=== PATIENT | male | born 1950 | race Caucasian/White ===

== ENCOUNTER 2021-05-11 06:48 | Observation (INO) ==
--- NOTE | 2021-05-04 15:05 | Anesthesiology Consultation ---
Date of Service May 04, 2021 Assessment & Plan (1) Encounter for pre-operative examination: Chart Review Chart Review: Acceptable Risk for Surgery (pending preop Covid testing results and anesthesia review of unconfirmed 04/30/21 EKG) and Patient NOT seen in Pre Admission Testing -Preop EKG from 04/30/21 still unconfirmed- no significant issues by personal visual inspection- will need reviewed by anesthesiologist DOS. Per nursing assessment 05/04/2021, patient denies any recent travel. Resides in [facility]. Wears mask per CDC guidelines. No known Covid positive contacts or Covid related symptoms. No known Covid infection in the past 90 days. Patient is vaccinated for Covid. Preop Covid testing scheduled 05/06/2021 at [facility]= will await results History Surgery Operation Date: 05/11/21 08:55 Proposed Procedures p Laparoscopic Appendectomy - Nasir Louie MD Height/Weight Height: 5 ft 7 in Weight: 85.275 kg Allergies Allergy/AdvReac Type Severity Reaction Status Date / Time No Known Allergies Allergy Verified 05/04/21 13:58 Medications Home Medications Medication Instructions Recorded Confirmed Last Taken amlodipine 5 mg PO QAM 02/02/19 05/04/21 02/26/19 atorvastatin 20 mg PO HS 02/02/19 05/04/21 02/26/19 metoprolol succinate 25 mg PO QAM 02/02/19 05/04/21 02/27/19 05:30 polyethylene glycol 3350 17 g PO DAILY PRN 02/02/19 05/04/21 02/26/19 tamsulosin 0.4 mg PO QPM 02/02/19 05/04/21 02/26/19 triamcinolone acetonide 1 applic TOPICAL DAILY PRN 02/02/19 05/04/21 02/26/19 albuterol sulfate [ProAir HFA] 2 puff INHALATION 6XD PRN 05/04/21 05/04/21 Unknown fluticasone furoate-vilanterol 1 inh INHALATION QAM 05/04/21 05/04/21 Unknown [Breo Ellipta] fluticasone propionate [Flonase] 1 spray INTRANASAL BID 05/04/21 05/04/21 Unknown gabapentin 100 mg PO TID 05/04/21 05/04/21 Unknown gabapentin 100 mg PO TID 05/04/21 05/04/21 Unknown glucosam de la cruz [id number] 1 cap PO TID 05/04/21 05/04/21 Unknown montelukast 10 mg PO QAM 05/04/21 05/04/21 Unknown omeprazole 20 mg PO QAM 05/04/21 05/04/21 Unknown Past Medical History Medical History BPH (benign prostatic hyperplasia) Emphysema lung Fatty liver GERD (gastroesophageal reflux disease) Hyperlipidemia Hypertension Osteoarthritis Past Family History Family History Other No known health problems Past Surgical History Surgical History Cyst ON CHEST REMOVED (BENIGN) History of cataract surgery History of colonoscopy History of herniorrhaphy History of tooth extraction Social History Smoking Status: Former smoker tobacco type: cigarettes Do You Dip or Chew Tobacco: No Smoking End Date: 1999 Hx Alcohol Use: No Hx Substance Use: No substance use type: does not use Testing Laboratory Results 04/08/21= WBC: 9.00 H/H: 15.9/47.8 PLATELETS: 183 03/31/21= SODIUM: 140 POTASSIUM: 4.4 CHLORIDE: 103 CO2: 26 BUN: 18 CREATININE: 1.2 GLUCOSE: 157 Electrocardiogram Date: 04/30/21 Findings: + NSR @ (80 bpm) Still unconfirmed as of 05/04/2021 Stress Test Date: 10/30/19 Type: exercise Resting EF: 55-60% Resting LV Function: normal Resting RWMA: + none Valvular Disease: no significant valvular disease Low heart rate response and or low workload achieved reduces the sensitivity of this test for the detection of coronary artery disease or ischemia. No inducible ischemia at 81% MPHR. 7 METS achieved. Stress EKG response showed no evidence of ischemia. No arrhythmias. Normal heart rate and blood pressure response to exercise. Below average exercise tolerance. At restnormal LV chamber size with mild/concentric LVH. Grade 1 diastolic dysfunction. (Reviewed by PCP 11/02/19- "Please let patient that his stress test looked good and did not show any major issue)
[~2021-05-11 06:48] MED LIST: LR 15ML/HR IV SCH; ceFAZolin 2000MG 2,000 MG/15 ML SYR IV SCH
[2021-05-11] MEDS ORDERED: fentaNYL citrate 100 MCG/2 ML VIAL IV PRN (09:06)
[2021-05-11] MEDS ORDERED: ATROPINE SULFATE 0.1 MG/ML 10ML SYR IV PRN (09:06)
[2021-05-11] MEDS ORDERED: ePHEDrine sulfate 50 MG/ML AMP IV PRN (09:06)
[2021-05-11] MEDS ORDERED: ONDANSETRON INJ 2 MG/ML 2 ML VIAL IV PRN ×2 (09:06→10:54)
[2021-05-11] MEDS ORDERED: ceFAZolin 2000MG 2,000 MG/15 ML SYR IV ONE (09:16)
--- NOTE | 2021-05-11 09:16 | History & Physical Bridge Note ---
Date of Service May 11, 2021 History & Physical Bridge Note I have examined the patient, reviewed the History & Physical and in the interval since the performance of the History & Physical I have noted the following changes of clinical significance: no changes noted
[2021-05-11] MEDS ORDERED: BACITRACIN OINT 15 GM TUBE ONE (09:28)
[2021-05-11] MEDS ORDERED: LIDOCAINE 1% LOCAL 20 ML VIAL ONE (09:28)
[2021-05-11] MEDS ORDERED: BUPIVACAINE 0.5 % 5 MG/1 ML MPF 30ML VIAL ONE (09:28)
[2021-05-11] MEDS ORDERED: MIDAZOLAM HCL 1 MG/ML 2ML VIAL ONE (09:32)
[2021-05-11] MEDS ORDERED: fentaNYL citrate 100 MCG/2 ML VIAL ONE (09:32)
[2021-05-11] MEDS ORDERED: ONDANSETRON INJ 2 MG/ML 2 ML VIAL ONE (10:29)
[2021-05-11] MEDS ORDERED: DEXAMETHASONE SOD INJ 4 MG/ML VIAL ONE (10:29)
[2021-05-11] MEDS ORDERED: LIDOCAINE 2% 2 ML VIAL/AMP(20MG/ML) INFIL ONE (10:29)
[2021-05-11] MEDS ORDERED: NEOSTIGMINE METHYLSULFATE 1 MG/ML 10ML VIAL ONE (10:29)
[2021-05-11] MEDS ORDERED: PROPOFOL IV EMULSION 10 MG/ML 20 ML VIAL IV ONE (10:29)
[2021-05-11] MEDS ORDERED: GLYCOPYRROLATE 0.2 MG/ML VIAL ONE (10:29)
--- NOTE | 2021-05-11 10:45 | Post Operative Brief Note ---
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 (whole procedure)
[2021-05-11] MEDS ORDERED: MoRPHine SULFATE 2 MG/ML CARP IV PRN (10:54)
[2021-05-11] MEDS ORDERED: SODIUM CHLORIDE 0.9% 1000ML 1,000 ML IV SCH (11:00)
--- NOTE | 2021-05-11 11:52 | Anesthesiology Progress Note ---
Date of Service May 11, 2021 Anesthesia Post Procedure Vital Signs Vital Signs: Temp Pulse Pulse Resp BP BP Pulse Ox 05/11/21 11:40 36.5 C 71 12 110/59 L 92 05/11/21 11:30 36.5 C 71 19 111/64 96 05/11/21 11:20 73 14 102/66 99 05/11/21 11:10 71 22 109/57 L 100 05/11/21 11:00 36.1 C L 70 16 116/73 99 05/11/21 07:55 36.6 C 96 H 18 149/78 H 96 Transfer of Care Handoff Completed per policy Notes Mental Status: alert / awake / arousable and participated in evaluation Patient Amnestic to Procedure: Yes Nausea / Vomiting: adequately controlled Pain: adequately controlled Airway Patency, RR, SpO2: stable & adequate BP & HR: stable & adequate Hydration State: stable & adequate Anesthetic Complications: no major complications apparent and Pt Satisfied with anesthetic care
[2021-05-11] MEDS ORDERED: TRIAMCINOLONE ACET 0.1% CR 15 GM TUBE TOP PRN (13:42)
[2021-05-11] MEDS ORDERED: POLYETHYLENE (MIRALAX) 17 GM PACK PO PRN (13:42)
[2021-05-11] MEDS ORDERED: ALBUTEROL HFA 8 GM INHALER INH PRN (13:50)
[2021-05-11] MEDS ORDERED: LACTATED RINGER'S 1,000 ML IV SCH (14:00)
[2021-05-11] MEDS ORDERED: NON-FORMULARY MEDICATION (Glucosam Su Dip-Chondroit-C-Mn 500-400-66-3 mg Capsule) PO SCH (14:00)
[2021-05-11] MEDS: GABAPENTIN 100 MG CAP PO SCH ×2 (14:11→20:20)
[2021-05-11] MEDS: oxyCODONE/ACETAMINOPHEN 5mg/325mg TAB PO PRN ×2 (14:38→22:38)
--- NOTE | 2021-05-11 17:24 | Operative Report (OR) ---
DATE OF PROCEDURE: 05/11/2021 PREOPERATIVE DIAGNOSIS: Chronic appendicitis. POSTOPERATIVE DIAGNOSIS: Chronic appendicitis. OPERATION: Laparoscopic appendectomy. SURGEON: Nasir Louie MD. ANESTHESIA: General. ESTIMATED BLOOD LOSS: About 10 mL. FINDING: Chronic appendicitis. COMPLICATIONS: None. INDICATIONS FOR THE PROCEDURE: This is a 70-year-old gentleman who presented with chronic right lowe r quadrant pain. The patient had a CT scan done, which showed an enlarged appendix and I recommended to do laparoscopic appendectomy, possible open. I did talk to the patient about the benefit, risk, alternate procedure. I indicated the risks may include, but not limited to, such as bleeding, infect ion, injury to other organs, incisional hernia, bowel obstruction. The patient understands. He sign ed informed consent and I answered all questions. DETAILS OF PROCEDURE: After we identified the patient and verified the procedure, we brought the pat ient to the OR, put the patient on the supine position. The patient received SCD on bilateral legs t o prevent DVT. Also, patient received 2 grams of Ancef IV for prophylactic antibiotic. The patient received general anesthesia without difficulty. The abdomen was prepped and draped in routine steril e fashion. After timeout, I injected the local anesthesia by using 1% lidocaine mixed with 0.5% Jarret evelin just above the umbilicus. Then I made a small incision just above the umbilicus, opened fascia and opened peritoneum. Under direct vision, put a Britany trocar in, connected to CO2 to create pneumo peritoneum, flow rate at 6 liters per minute, pressure not more than 14 mmHg. Once we get a nice pneumoperitoneum, we put the camera in, looked around the abdomen, it shows normal finding on the small bowel and large bowel and then at this moment, we put another two 5 mm trocars on the left lower quadrant area. Then we mobilized the cecum and found the patient to have an append ix that shows chronic appendicitis and enlarged appendix. At this moment, we used the Harmonic to ta ke down the appendiceal. Rechecked, no active bleeding. Then, I used a 45 mm Endo-MANOLO stapler for t ransection on the base of appendix. Rechecked the staple line, intact and no leak. Then, we removed the appendix through the catch bag. Then, we reinserted the Britany trocar in, connected to CO2 to create pneumoperitoneum, again looked a round the abdomen, no active bleeding, no leak on the staple line. Then, we removed all trocars unde r direct vision. No active bleeding from the trocar site. The pneumoperitoneum was released, then I closed the umbilical incision fascial layer by using 0 Vicryl [id number] x2, closed subcutaneou s layer by using 2-0 Vicryl interruptedly, closed the skin by using 4-0 Vicryl continuous running, cl osed another two 5 mm trocar sites of skin only by using 4-0 Vicryl. Then, we put the dressing on. The patient tolerated the procedure well. All instrument, needle and sponge counts were correct x2 a t the end of the case. The patient was transferred to recovery room in stable condition. The specim en was sent to pathology. After the procedure, I did talk to the patient about the OR finding and th e procedure we did. Also, I gave the patient postop care instructions, patient understands. Job ID: [id number]
[2021-05-11] MEDS: FLUTICASONE PROPIONATE NA SPR 16 GM BTL SCH (20:21)
[2021-05-11] MEDS ORDERED: TAMSULOSIN HCL 0.4 MG CAP PO SCH (21:00)
[2021-05-11] MEDS ORDERED: ATORVASTATIN 20 MG TAB PO SCH (21:00)
[2021-05-12 05:13] LABS: Hemoglobin 13.5 g/dL (14.0-18.0); Immature Granulocytes # (auto) 0.04 K/uL (0.00-0.02); Immature Granulocytes % (auto) 0.3 %; Lymphocytes % (auto) 6.3 %; Mean Corpuscular Hemoglobin 29.5 pg (25-34); Mean Corpuscular Hgb Conc 34.6 g/dL (32-36); Mean Corpuscular Volume 85.2 fL (80-100); Mean Platelet Volume 10.4 fL (7.4-10.4); Monocytes # (auto) 0.68 K/uL (0.11-0.59); Monocytes % (auto) 5.4 %; Neutrophils # (auto) 11.09 K/uL (1.4-6.5); Platelet Count 175 K/uL (130-400); RDW Standard Deviation 39.4 fL (36.4-46.3); Red Blood Count 4.58 M/uL (4.7-6.1); White Blood Count 12.61 K/uL (4.8-10.8)
[2021-05-12] MEDS ORDERED: amLODIPine BESYLATE 5 MG TAB PO SCH (09:00)
[2021-05-12] MEDS ORDERED: FLUTICASONE/VILANTEROL 100/25MCG 14 PUFFS/INHALER INH SCH (09:00)
[2021-05-12] MEDS ORDERED: MONTELUKAST SODIUM 10 MG TABLET PO SCH (09:00)
[2021-05-12] MEDS ORDERED: PANTOprazole 40 MG TAB PO SCH (09:00)
[2021-05-12] MEDS ORDERED: ASPIRIN 81 MG ECTAB PO SCH (09:00)
[2021-05-12] MEDS ORDERED: METOPROLOL SUCC 25MG EXT REL TAB PO SCH (09:00)
[2021-05-12] MEDS: FLUTICASONE PROPIONATE NA SPR 16 GM BTL SCH (09:22)
[2021-05-12] MEDS: GABAPENTIN 100 MG CAP PO SCH ×2 (09:24→14:42)
--- NOTE | 2021-05-12 15:00 | Progress Note ---
Date of Service May 12, 2021 Assessment & Plan (1) Post-operative state: Plan: F/U S/P lap appy, POD 1 doing fine, pt wants to go home today, the post-op care instruction was given, F/U me 2 weeks, Admission and Anticipated Discharge Date Admission Date: May 11, 2021 Subjective F/U S/P lap appy, POD 1 pt is doing fine, no significant abdominal pain, tolerated diet, no nausea, no vomiting, no fever, Physical Exam Constitutional: WD/WN, vitals as above Neck: trachea midline, no thyromegaly Respiratory: normal respiratory effort, lungs clear to auscultation Cardiovascular: RRR, no murmur, no edema Gastrointestinal (Abdomen): soft, mild tenderness at incision site, no redness, all incisions intact, BS + Musculoskeletal: no cyanosis or clubbing, extremities motor strength 5/5 Neurologic: patellar DTR's 2+ bilat, sensation intact Psychiatric: A+Ox3, euthymic affect Results & Data ([facility]) Vital Signs (Past 12 Hours) Vital Signs Temp Pulse Resp BP BP Pulse Ox 05/12/21 12:00 36.7 C 77 18 133/69 96 05/12/21 09:21 90 136/63 05/12/21 07:10 36.7 C 69 18 129/68 98 05/12/21 03:14 36.6 C 81 17 99/59 L 94 Laboratory Results Abnormal lab results 05/12/21 Range/Units 05:03 WBC 12.61 H (4.8-10.8) K/uL RBC 4.58 L (4.7-6.1) M/uL Hgb 13.5 L (14.0-18.0) g/dL Hct 39.0 L (42-52) % Neut # (Auto) 11.09 H (1.4-6.5) K/uL Lymph # (Auto) 0.80 L (1.2-3.4) K/uL Wilson # (Auto) 0.68 H (0.11-0.59) K/uL Immature Gran # (Auto) 0.04 H (0.00-0.02) K/uL
--- NOTE | 2021-05-12 20:03 | Discharge Summary (DS) ---
DATE OF ADMISSION: 05/11/2021 DATE OF DISCHARGE: 05/12/2021 ADMISSION DIAGNOSIS: Chronic appendicitis. DISCHARGE DIAGNOSIS: Chronic appendicitis. OPERATION: Laparoscopic appendectomy. SURGEON: Nasir Louie MD. DETAILS OF DISCHARGE SUMMARY: This is a 70-year-old gentleman who presented with chronic appendiciti s and we took the patient to the OR, we did a laparoscopic appendectomy on 05/11/2021. The patient t olerated the procedure well. After the procedure, the patient was transferred to recovery room and l ater on transferred to regular floor. The patient is doing fine. He tolerated the diet. No nausea, no vomiting, no fever. PHYSICAL EXAMINATION: VITAL SIGNS: Temperature is 36.7, respiratory rate 18, heart rate is 77, blood pressure 133/69, O2 s aturation 96% on room air. GENERAL: The patient is alert, awake, oriented x3. HEENT: Within normal limitation. NEUROLOGIC: Intact. NECK: No JVD. CHEST: Bilateral lung sounds clear. HEART: Normal S1 and S2. No murmur. ABDOMEN: Soft. All incisions intact. Mild tenderness around the incision site. No redness, no kathi ound pain. Bowel sounds positive. EXTREMITIES: All extremities with no edema. The patient will go home today. We gave the patient postop care instructions. The patient understclayton yusuf. I will follow up the patient in 2 weeks. Job ID: [id number]
== END 2021-05-12 17:04 | disposition home or self-care (01) ==
LOC: PACUINP 06:48 → ASU 06:48 → 3W 13:43

== ENCOUNTER 2022-08-05 14:30 | Inpatient (IN) ==
[2022-08-05 14:58] LABS: Basophils # (auto) 0.06 K/uL (0-0.2); Basophils % (auto) 0.7 %; Eosinophils # (auto) 0.05 K/uL (0-0.50); Eosinophils % (auto) 0.6 %; Hematocrit (blood only) 44.5 % (40.1-51.0); Hemoglobin 15.8 g/dl (14.0-18.0); Immature Granulocytes % (auto) 1.2 %; Lymphocytes # (auto) 1.22 K/uL (1.2-3.4); Lymphocytes % (auto) 15.2 %; Mean Corpuscular Hgb Conc 35.5 g/dL (32.0-36.0); Mean Corpuscular Volume 84.4 fL (80.0-100.0); Mean Platelet Volume 10.5 fL (9.4-12.4); Monocytes # (auto) 0.73 K/uL (0.24-0.82); Monocytes % (auto) 9.1 %; Neutrophils # (auto) 5.88 K/uL (1.4-6.5); Neutrophils % (auto) 73.2 %; Platelet Count 166 K/uL (130-400); RDW Coefficient of Variation 12.8 % (11.5-14.5); RDW Standard Deviation 38.9 fL (36.4-46.3); Red Blood Count 5.27 M/uL (4.63-6.08); White Blood Count 8.04 K/ul (4.8-10.8)
[2022-08-05 15:13] LABS: Partial Thromboplastin Ratio 0.9; Partial Thromboplastin Time 25.6 Seconds (21.0-31.0)
--- NOTE | 2022-08-05 15:14 | Emergency Department Note ---
Impression & Plan Atypical chest pain ED Provider Note NAME: DAVID HERNANDEZ AGE: 71 SEX: M : 1950 ARRIVES VIA: Ambulance INFORMANT: [Patient][, ] ED PROVIDER(S): [Vivek Anaya MD] Chief Complaint: Chest pain, outpatient referral HPI: Patient presents after being seen as a walk-in after having a general appointment around 10 AM this morning just for standard follow-up. The patient dates that he went home and around 11 AM he developed some centralized chest tightness that did worsen with exertion and walking around. The patient subsequently drove to the clinic was given aspirin and nitro which improved his symptoms as did rest. The patient denies any current chest pains. No history of DVT or PE no prior history of heart or lung disease. The patient denies any nausea vomiting or diaphoresis. Patient denies any cough or fever and has had no leg swelling or calf pain. Patient denies any trauma and denies any family history in parents or siblings of heart disease. The patient does not follow with a kineseologist. ROS: See HPI for pertinent positives and negatives. A total of 10 systems were reviewed and otherwise negative. Past medical history: See below Surgical history: See below Social history: See below Physical Exam: GENERAL: NAD, [wearing a mask,] non-toxic. EYE EXAM: Normal conjunctiva. PERRL, no anisocoria and EOM's grossly intact w/o pain. NECK: Supple, no nuchal rigidity, no adenopathy, non-tender. No signs of meningismus. FROM of the neck with good chin to chest and neck extension. No stridor. LUNGS: Clear to auscultation. Normal chest wall mechanics. HEART: NSR, no MRG. ABDOMEN: Abdomen soft, non-tender, normo-active bowel sounds, no masses, no rebound or guarding. BACK: No CVA TTP. SKIN: No rashes and no bruising. UPPER EXTREMITIES: Upper extremities are grossly normal. LOWER EXTREMITIES: Grossly normal, no edema. Negative Homans' sign bilaterally. NEURO EXAM: A&O x3, cranial nerves II-XII grossly intact, normal speech, moves all 4 extremities. Differential diagnoses: Cardiac ischemia, aortic dissection, pulmonary embolism, pneumothorax, pneumonia, pericarditis, myocarditis, esophageal rupture, GERD, cholecystitis, pancreatitis, musculoskeletal, as well as other pathologies. Course: Patient was seen and evaluated the bedside. Full history physical exam was performed. EKG interpreted by me Normal sinus rhythm, rate of 90, normal intervals, normal axis, no ST elevations or T WI. No prior EKGs for comparison. Imaging Studies: See Below Cardiac monitoring: An order was placed for continuous cardiac monitoring. The monitor shows a rate of 88 with sinus rhythm. MDM: Patient presented to concern for chest pain that is since resolved after aspirin and nitro. It was initially exertional. Blood work was obtained along with an EKG troponin chest x-ray and COVID. EKG with no signs of ischemia at the time of presentation. The patient's Blood work shows a normal white count H&H and platelet count kidney function is unremarkable. Troponin is not elevated. COVID-negative. The patient's chest x-ray does not show any acute findings. Given that the patient did have exertional chest pain that did improve with aspirin and nitro and he does have an elevated heart score do think the patient would benefit from observation and treatment. I did speak to the on-call hospitalist Niki Cannon PA-C and the patient was admitted by Dr. Siddiqui. I did convey these recommendations to the patient is he is agreeable to the plan of care. Past Med/Surg History Medical History Alkaline phosphatase elevation BPH (benign prostatic hyperplasia) Emphysema lung Fatty liver GERD (gastroesophageal reflux disease) Hyperlipidemia Hypertension Osteoarthritis Scoliosis Surgical History Cyst ON CHEST REMOVED (BENIGN) History of cataract surgery History of colonoscopy History of herniorrhaphy History of tooth extraction Family History (Updated 08/05/22 @ 18:21 by Frida Cannon PA-C) Father Coronary heart disease Mother Diabetes Other Heart disease Hypertension Social History (Updated 08/05/22 @ 17:03 by Frida Cannon PA-C) Smoking Status: Former smoker Second Hand Exposure: No; Hx Alcohol Use: No Hx Substance Use: No Preferred Language: Tuvaluan Communication Ability: Effective [employer] Assistant Required: No Beliefs That Will Affect Care: None Current Living Situation: Alone current occupational status: retired Other Information That Helps Us Care for You: No Feels Safe at Home: Yes Safety Concerns: Feels Safe At This Time Assistive Devices: Denture - Upper and Denture - Lower Allergies Allergies Allergy/AdvReac Type Severity Reaction Status Date / Time No Known Allergies Allergy Verified 08/05/22 17:07 Home Meds Home Medications Medication Instructions Recorded Confirmed amlodipine 5 mg tablet 5 mg PO QAM 02/02/19 08/05/22 atorvastatin 20 mg tablet 20 mg PO DAILY 02/02/19 08/05/22 metoprolol succinate 25 mg 12.5 mg PO QAM 02/02/19 08/05/22 tablet,extended release 24 hr (Toprol XL) tamsulosin 0.4 mg capsule 0.4 mg PO QAM 02/02/19 08/05/22 albuterol sulfate 90 mcg/actuation 2 puff inhalation Q4H PRN Wheezing 05/04/21 08/05/22 aerosol inhaler (ProAir HFA) fluticasone furoate 100 1 inh inhalation QAM 05/04/21 08/05/22 mcg-vilanterol 25 mcg/dose inhalation powder (Breo Ellipta) fluticasone propionate 50 2 spray intranasal DAILY 05/04/21 08/05/22 mcg/actuation nasal spray,suspension omeprazole 20 mg capsule,delayed 20 mg PO DAILYBB 05/04/21 08/05/22 release albuterol sulfate 5 mg/mL(0.5 %) 2.5 mg inhalation DIRECTED PRN 08/05/22 08/05/22 solution for nebulization Shortness Of Breath aspirin 81 mg chewable tablet 81 mg PO DAILY 08/05/22 08/05/22 dicyclomine 10 mg capsule 10 mg PO DIRECTED PRN ABD PAIN 08/05/22 08/05/22 famotidine 40 mg tablet 40 mg PO DAILY 08/05/22 08/05/22 nitroglycerin 0.4 mg sublingual 0.4 mg sublingual DIRECTED PRN 08/05/22 08/05/22 tablet (Nitrostat) Chest Pain Results & Data (ED) Vital Signs Vital Signs - 24 hr 08/05/22 14:43 08/05/22 14:43 08/05/22 16:20 Temperature 36.5 C Temperature Source Oral Pulse Rate 96 H Pulse Rate [Finger] 71 Pulse Rhythm [Finger] Regular Pulse Strength [Finger] Normal Respiratory Rate 20 22 Respiratory Effort / Characteristics Non-Labored Spontaneous Respiratory Depth Normal Blood Pressure 156/79 H Blood Pressure [Left Arm] 132/63 Blood Pressure Mean 104 Blood Pressure Mean [Left Arm] 86 Blood Pressure Position Sitting Pulse Oximetry 100 100 98 Oxygen Delivery Method Room Air Room Air Nasal Cannula Oxygen Flow Rate 3 Sepsis Recent Fever Within 48 Hours No Sepsis New/Unexplained Change in Mental Status No Sepsis Action Taken by Nursing No Action Required Home Medications Current Medication List: was personally reviewed by me Laboratory Data Attestation: I reviewed the patient's lab results. Result diagrams: 08/05/22 14:40 08/05/22 14:40 Lab Results 08/05/22 08/05/22 08/05/22 Range/Units 14:40 14:40 14:40 WBC 8.04 (4.8-10.8) K/ul RBC 5.27 (4.63-6.08) M/uL Hgb 15.8 (14.0-18.0) g/dl Hct 44.5 (40.1-51.0) % MCV 84.4 (80.0-100.0) fL MCH 30.0 (25.0-34.0) pg MCHC 35.5 (32.0-36.0) g/dL RDW Std Deviation 38.9 (36.4-46.3) fL RDW Coeff of Vanesa 12.8 (11.5-14.5) % Plt Count 166 (130-400) K/uL MPV 10.5 (9.4-12.4) fL Immature Gran % (Auto) 1.2 % Neut % (Auto) 73.2 % Lymph % (Auto) 15.2 % Winkler % (Auto) 9.1 % Eos % (Auto) 0.6 % Baso % (Auto) 0.7 % Neut # (Auto) 5.88 (1.4-6.5) K/uL Lymph # (Auto) 1.22 (1.2-3.4) K/uL Winkler # (Auto) 0.73 (0.24-0.82) K/uL Eos # (Auto) 0.05 (0-0.50) K/uL Baso # (Auto) 0.06 (0-0.2) K/uL Immature Gran # (Auto) 0.10 H (0.00-0.02) K/uL PT 11.0 (9.0-12.0) Seconds INR 1.0 (0.9-1.1) APTT 25.6 (21.0-31.0) Seconds PTT Ratio 0.9 Sodium 139 (136-145) mmol/L Potassium 3.8 (3.5-5.1) mmol/L Chloride 104 (98-107) mmol/L Carbon Dioxide 27 (21-32) mmol/L Anion Gap 8 (3-11) BUN 13 (6-23) mg/dl Creatinine 0.97 (0.6-1.4) mg/dl Est Cr Clr Drug Dosing 79.4 ml/min Est GFR ( Amer) 90.7 ml/min Est GFR (Non-Af Amer) 78.2 ml/min BUN/Creatinine Ratio 13.4 (10-20) Glucose 90 (70-99(Fasting)) mg/dl Calcium 9.3 (8.5-10.1) mg/dl Total Bilirubin 0.8 (0.2-1.0) mg/dl AST 21 (13-39) U/L ALT 27 (7-52) U/L Alkaline Phosphatase 93 (34-104) U/L Troponin I High Sens 4.1 (0-20) pg/ml Total Protein 7.0 (6.0-8.3) gm/dl Albumin 4.2 (3.4-5.0) gm/dl Globulin 2.8 (2.5-4.0) gm/dl Albumin/Globulin Ratio 1.5 (0.9-2) SARS-CoV-2, RNA, NAAT (NEGATIVE) 08/05/22 Range/Units 15:38 WBC (4.8-10.8) K/ul RBC (4.63-6.08) M/uL Hgb (14.0-18.0) g/dl Hct (40.1-51.0) % MCV (80.0-100.0) fL MCH (25.0-34.0) pg MCHC (32.0-36.0) g/dL RDW Std Deviation (36.4-46.3) fL RDW Coeff of Vanesa (11.5-14.5) % Plt Count (130-400) K/uL MPV (9.4-12.4) fL Immature Gran % (Auto) % Neut % (Auto) % Lymph % (Auto) % Winkler % (Auto) % Eos % (Auto) % Baso % (Auto) % Neut # (Auto) (1.4-6.5) K/uL Lymph # (Auto) (1.2-3.4) K/uL Winkler # (Auto) (0.24-0.82) K/uL Eos # (Auto) (0-0.50) K/uL Baso # (Auto) (0-0.2) K/uL Immature Gran # (Auto) (0.00-0.02) K/uL PT (9.0-12.0) Seconds INR (0.9-1.1) APTT (21.0-31.0) Seconds PTT Ratio Sodium (136-145) mmol/L Potassium (3.5-5.1) mmol/L Chloride (98-107) mmol/L Carbon Dioxide (21-32) mmol/L Anion Gap (3-11) BUN (6-23) mg/dl Creatinine (0.6-1.4) mg/dl Est Cr Clr Drug Dosing ml/min Est GFR ( Amer) ml/min Est GFR (Non-Af Amer) ml/min BUN/Creatinine Ratio (10-20) Glucose (70-99(Fasting)) mg/dl Calcium (8.5-10.1) mg/dl Total Bilirubin (0.2-1.0) mg/dl AST (13-39) U/L ALT (7-52) U/L Alkaline Phosphatase (34-104) U/L Troponin I High Sens (0-20) pg/ml Total Protein (6.0-8.3) gm/dl Albumin (3.4-5.0) gm/dl Globulin (2.5-4.0) gm/dl Albumin/Globulin Ratio (0.9-2) SARS-CoV-2, RNA, NAAT NEGATIVE (NEGATIVE) Administered Medications Heparin Sodium (Porcine) (Heparin Sod 5,000 Unit/0.5 Ml Vial) 5,000 units SQ Q12 AMANDO Stop: 09/04/22 20:59 Last Admin: 08/05/22 20:45 Dose: 5,000 units Documented By: DARIANA Imaging Data Radiologist's Impression: Chest X-Ray 08/05/22 15:31 XR chest 1V portable HISTORY: Atypical chest pain COMPARISON: None. FINDINGS: The lungs are clear. Cardiac silhouette is normal in size. No pleural effusions. No pneumothorax. IMPRESSION: No acute process. ACT 112: Negative or not required by law. Electronically signed by: Troy Feldman M.D. 08/05/2022 4:03 PM Discharge Plan Visit Data Chief Complaint: Cardiac Assessment Stated Complaint: chest tightness- resolved ED Provider: Vivek Anaya Discharge Problem: Atypical chest pain Patient Disposition: Admitted As Inpatient Discharge Instructions Interventions: ED Discharge Assessment Last Done: 08/05/22 18:04
[2022-08-05 15:34] LABS: Troponin I High Sensitivity 4.1 pg/ml (0-20)
[2022-08-05 15:42] LABS: Albumin Globulin Ratio 1.5 (0.9-2); Albumin Level 4.2 gm/dl (3.4-5.0); BUN Creatinine Ratio 13.4 (10-20); Bilirubin,Total 0.8 mg/dl (0.2-1.0); Calcium 9.3 mg/dl (8.5-10.1); Creatinine Clr Calc Pharmacy 79.4 ml/min; Est GFR (African American) 90.7 ml/min; Est GFR (Non-African American) 78.2 ml/min; Globulin 2.8 gm/dl (2.5-4.0); Potassium 3.8 mmol/L (3.5-5.1)
--- NOTE | 2022-08-05 16:04 | XRay Report ---
XR chest 1V portable HISTORY: Atypical chest pain COMPARISON: None. FINDINGS: The lungs are clear. Cardiac silhouette is normal in size. No pleural effusions. No pneumot horax. IMPRESSION: No acute process. ACT 112: Negative or not required by law. Electronically signed by: Troy Feldman M.D. 08/05/2022 4:03 PM
--- NOTE | 2022-08-05 17:06 | History & Physical Report ---
Date of Service August 05, 2022 Assessment & Plan (1) Atypical chest pain: (2) Hypertension: (3) Hyperlipidemia: Plan: - Admit to tele for observation for r/o - Trend cardiac biomarkers, initial set was negative with trop = 4.1 - EKG reviewed as above and is negative for acute changes - Check 2 D echo - last Echo 01/18/22 done for fluid retention in legs: showing left ventricular cavity size is normal, wall thickness is normal, right ventricular systolic function is normal, left atrium is normal sized, left ventricular diastolic function is mildly abnormal (grade 1), mild tricuspid regurg is present, no significant pulmonary regurgitation. - If negative enzymes can consider a stress test tomorrow morning. Will make NPO after midnight - Consult cardiology - previously had seen Dr. England as outpatient in 2018 for HTN, HLD, and noted substernal chest pain with movement of the left arm but not on exertion. He had a zio patch which did not reveal any significant arrhythmias. - PT/OT consulted (4) Emphysema lung: Plan: - Quit smoking in 1999? Pt notes smoked for 30+ years - Does not wear supplemental O2 at baseline, currently on 3 L via NC at 98% (5) Fatty liver: Plan: -Follows with GI as an outpatient, was in their office earlier today for routine appointment: -had complaints of abd discomfort x few days, pt reports distension, normal bowel movements, no nausea/vomiting. Denies abdominal complaints currently -Had a right inguinal hernia repair with mesh in 2017, right lower quadrant ultrasound did not show any recurrence of hernia or mass -planning on outpatient RUQ US for liver evaluation, KUB, trial dicyclomine 10 mg daily as needed for abdominal pain/cramping, consider CT abdomen pelvis if KUB was unrevealing and Dicyclomine not helpful - Will obtain KUB today for distension and chest pressure as above (6) GERD (gastroesophageal reflux disease): Plan: - Cont omeprazole DVT ppx: scds, heparin subq CODE: FULL code Dispo: From home, lives alone, remain in the hospital overnight for cardiac observation History of Present Illness Chief Complaint: chest pain Primary Care Provider: Jenny Agarwal MD This is a 71 yo M with PMhx of emphysema with remote smoking hx (quit in 1999 ), remote hx of alcohol use (quit in 1999) HLD, HTN, panic attacks and anxiety, and fatty liver. He initially presented to outpatient GI clinic today for routine follow-up for fatty liver this morning where there were no complaints of any chest pain, shortness of breath. 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 He proceeded to go home and then 1 in his home while walking felt similar chest pain and heaviness again. Other associated symptoms included lightheadedness and dizziness. He drove himself back to urgent care for an evaluation. There he was administered 4 baby aspirin's, 1 dose of nitro which improved his symptoms. Denies any current chest pain, heaviness or pressure now, and feels "completely normal". EMS transported him to the hospital via ambulance. Patient reports never feeling pain such as this before. He is unable to recall why he had an Echo of the heart done last Spring and does not remember why he previously saw cardiology. Pt reports taking all of his routinely scheduled medications including this mornings. Daughter Pratibha Hernandez, C: [phone], H:[phone] Allergies Allergy/AdvReac Type Severity Reaction Status Date / Time No Known Allergies Allergy Verified 08/05/22 17:07 Home Medications Medication Instructions Recorded Confirmed Type amlodipine 5 mg tablet 5 mg PO QAM 02/02/19 08/05/22 History atorvastatin 20 mg tablet 20 mg PO DAILY 02/02/19 08/05/22 History metoprolol succinate 25 mg 12.5 mg PO QAM 02/02/19 08/05/22 History tablet,extended release 24 hr (Toprol XL) tamsulosin 0.4 mg capsule 0.4 mg PO QAM 02/02/19 08/05/22 History albuterol sulfate 90 mcg/actuation 2 puff inhalation Q4H PRN Wheezing 05/04/21 08/05/22 History aerosol inhaler (ProAir HFA) fluticasone furoate 100 1 inh inhalation QAM 05/04/21 08/05/22 History mcg-vilanterol 25 mcg/dose inhalation powder (Breo Ellipta) fluticasone propionate 50 2 spray intranasal DAILY 05/04/21 08/05/22 History mcg/actuation nasal spray,suspension omeprazole 20 mg capsule,delayed 20 mg PO DAILYBB 05/04/21 08/05/22 History release albuterol sulfate 5 mg/mL(0.5 %) 2.5 mg inhalation DIRECTED PRN 08/05/22 08/05/22 History solution for nebulization Shortness Of Breath aspirin 81 mg chewable tablet 81 mg PO DAILY 08/05/22 08/05/22 History dicyclomine 10 mg capsule 10 mg PO DIRECTED PRN ABD PAIN 08/05/22 08/05/22 History famotidine 40 mg tablet 40 mg PO DAILY 08/05/22 08/05/22 History nitroglycerin 0.4 mg sublingual 0.4 mg sublingual DIRECTED PRN 08/05/2207/24 History tablet (Nitrostat) Chest Pain Past Med/Surg History Medical History (Updated 08/05/22 @ 17:05 by Frida Cannon PA-C) Alkaline phosphatase elevation BPH (benign prostatic hyperplasia) Emphysema lung Fatty liver GERD (gastroesophageal reflux disease) Hyperlipidemia Hypertension Osteoarthritis Scoliosis Surgical History Cyst ON CHEST REMOVED (BENIGN) History of cataract surgery History of colonoscopy History of herniorrhaphy History of tooth extraction Family History (Updated 08/05/22 @ 18:21 by Frida Cannon PA-C) Father Coronary heart disease Mother Diabetes Other Heart disease Hypertension Social History (Updated 08/05/22 @ 17:03 by Frida Cannon PA-C) Smoking Status: Former smoker Second Hand Exposure: No; Hx Alcohol Use: No Hx Substance Use: No Preferred Language: Welsh Communication Ability: Effective Drug And Alcohol Counselor Required: No Beliefs That Will Affect Care: None Current Living Situation: Alone current occupational status: retired Other Information That Helps Us Care for You: No Feels Safe at Home: Yes Safety Concerns: Feels Safe At This Time Assistive Devices: Denture - Upper and Denture - Lower Review of Systems Review of Systems: Constitutional: No fever, sweats or chills Eyes: No diplopia, no worsening or blurred vision ENT: normal hearing, no trouble swallowing Respiratory: No cough, sputum, dyspnea at rest or on exertion Cardiovascular: As per HPI, currently no chest pain, tightness or palpitations Abdomen: No pain, + distension, no nausea, vomiting, diarrhea or constipation Musculoskeletal: No joint pain, calf pain, swelling Neurologic: No weakness, numbness/tingling, or balance problems Psychiatric: No anxiety or depression Skin: No rash or itch Physical Exam Physical Exam: General: awake, alert, no apparent distress Head: Normocephalic, atraumatic ENT: PERRL, EOMI, no pharyngeal exudate, mucous membranes moist Chest: Clear to auscultation, on room air, no adventitious breath sounds Cardiac: Regular rate and rhythm, + few PVCs, +faint murmur, no JVD, normal peripheral pulses, good capillary refill Abdominal: NABS x 4 quadrants, soft, + moderately distended, nontender to palpation, no rebound or guarding Extremities: Normal inspection, no peripheral edema or erythema, calfs nontender to palpation Psych: Normal mood and affect Neuro: AAO x 3, strength intact bilaterally and rated 5/5, no motor deficits, speech is clear, no peripheral sensory deficits Results & Data Results & Data ([facility]) Vital Signs (Past 12 Hours) Vital Signs Temp Pulse Pulse Resp BP BP Pulse Ox 08/05/22 16:20 71 22 132/63 98 08/05/22 14:43 100 08/05/22 14:43 36.5 C 96 H 20 156/79 H 100 O2 Del Method O2 Flow Rate 08/05/22 16:20 Nasal Cannula 3 08/05/22 14:43 Room Air 08/05/22 14:43 Room Air Laboratory Results 08/05/22 08/05/22 08/05/22 15:38 14:40 14:40 WBC RBC Hgb Hct MCV MCH MCHC RDW Std Deviation RDW Coeff of Vanesa Plt Count MPV Immature Gran % (Auto) Neut % (Auto) Lymph % (Auto) [place] % (Auto) Eos % (Auto) Baso % (Auto) Neut # (Auto) Lymph # (Auto) [place] # (Auto) Eos # (Auto) Baso # (Auto) Immature Gran # (Auto) PT 11.0 INR 1.0 APTT 25.6 PTT Ratio 0.9 Sodium 139 Potassium 3.8 Chloride 104 Carbon Dioxide 27 Anion Gap 8 BUN 13 Creatinine 0.97 Est Cr Clr Drug Dosing 79.4 Est GFR ( Amer) 90.7 Est GFR (Non-Af Amer) 78.2 BUN/Creatinine Ratio 13.4 Glucose 90 Calcium 9.3 Total Bilirubin 0.8 AST 21 ALT 27 Alkaline Phosphatase 93 Troponin I High Sens 4.1 Total Protein 7.0 Albumin 4.2 Globulin 2.8 Albumin/Globulin Ratio 1.5 SARS-CoV-2, RNA, NAAT NEGATIVE 08/05/22 14:40 WBC 8.04 RBC 5.27 Hgb 15.8 Hct 44.5 MCV 84.4 MCH 30.0 MCHC 35.5 RDW Std Deviation 38.9 RDW Coeff of Vanesa 12.8 Plt Count 166 MPV 10.5 Immature Gran % (Auto) 1.2 Neut % (Auto) 73.2 Lymph % (Auto) 15.2 [place] % (Auto) 9.1 Eos % (Auto) 0.6 Baso % (Auto) 0.7 Neut # (Auto) 5.88 Lymph # (Auto) 1.22 [place] # (Auto) 0.73 Eos # (Auto) 0.05 Baso # (Auto) 0.06 Immature Gran # (Auto) 0.10 H PT INR APTT PTT Ratio Sodium Potassium Chloride Carbon Dioxide Anion Gap BUN Creatinine Est Cr Clr Drug Dosing Est GFR ( Amer) Est GFR (Non-Af Amer) BUN/Creatinine Ratio Glucose Calcium Total Bilirubin AST ALT Alkaline Phosphatase Troponin I High Sens Total Protein Albumin Globulin Albumin/Globulin Ratio SARS-CoV-2, RNA, NAAT ECG Additional Comments: 05-AUG-2022 14:38:36 [facility]-EDSTAT ROUTINE RETRIEVAL Normal sinus rhythm Normal ECG No previous ECGs available 25mm/s10mm/[id number] 241CID: 3Unconfirmed Vent. rate 90 BPM AL interval 178 ms QRS duration 86 ms QT/QTc 364/445 ms Code Status & VTE Plan Code Status Full code - discussed with the patient at bedside Supervising Physician Co-Signing Physician Notes Pt seen and examined by me , care coordinated w/ Victorino Cannon PA-C, pls refer to her note above for further detail. Pt is a 71 yo M with emphysema with remote smoking hx (quit in 1999 ), remote hx of alcohol use (quit in 1999) HLD, HTN, panic attacks and anxiety, and fatty liver who presents with chest pain. Patient reports feeling dizzy and lightheaded with exertion for the past several days. Today he experienced chest pain, substernal, with exertion for the first time. He also felt dizzy and lightheaded. Denies any significant shortness of breath associated with it or diaphoresis. As it occurred several times today while he was walking or exerting himself, he went for evaluation at the urgent care clinic. Received aspirin and nitro which helped with the symptoms and he was transferred by ambulance to the ED. In the ED troponin was negative, EKG shows NSR (will repeat ECG due to quality of tracing). On current evaluation however patient feels well. Denies any more chest pain. He is alert oriented answering questions appropriately. Lung sounds are clear to auscultation bilaterally without any wheezing rhonchi crackles. Heart sounds regular. Abdomen soft nontender nondistended. No lower extremity edema noted. Skin is warm and dry. Will monitor patient on telemetry. Will trend cardiac markers. Will discuss further with cardiology if/any further testing recommended. MD Artur
--- NOTE | 2022-08-05 18:12 | XRay Report ---
XR KUB/Abdomen 1 view CLINICAL HISTORY: abd pain TECHNIQUE: 1 view of the abdomen was obtained. Comparison: None available at the time of this dictation. FINDINGS: Lung bases are unremarkable. Degenerative changes are seen in the visualized skeleton. The bowel gas pattern is nonobstructive. A moderate amount of stool is noted within the large bowel. IMPRESSION: Nonobstructive bowel gas pattern. Moderate stool burden without evidence of impaction. ACT 112: Negative or not required by law. Electronically signed by: Deion Acuna M.D. 08/05/2022 6:11 PM
[2022-08-05] MEDS ORDERED: ONDANSETRON INJ 2 MG/ML 2 ML VIAL IV PRN (18:19)
[2022-08-05] MEDS ORDERED: ACETAMINOPHEN 325 MG TAB PO PRN (18:19)
[2022-08-05] MEDS: HEPARIN SOD 5,000 UNIT/0.5 ML VIAL SQ SCH (20:45)
[2022-08-06 06:12] LABS: Hemoglobin 15.1 g/dl (14.0-18.0); Mean Corpuscular Hgb Conc 35.1 g/dL (32.0-36.0); Mean Corpuscular Volume 85.3 fL (80.0-100.0); Mean Platelet Volume 10.8 fL (9.4-12.4); Platelet Count 170 K/uL (130-400); RDW Coefficient of Variation 12.8 % (11.5-14.5); Red Blood Count 5.04 M/uL (4.63-6.08); White Blood Count 7.27 K/ul (4.8-10.8)
--- NOTE | 2022-08-06 06:22 | Electrocardiogram Report ---
Test Reason : Blood Pressure : / mmHG Vent. Rate : 090 BPM Atrial Rate : 090 BPM P-R Int : 178 ms QRS Dur : 086 ms QT Int : 364 ms P-R-T Axes : 068 080 079 degrees QTc Int : 445 ms Normal sinus rhythm Normal ECG No previous ECGs available Confirmed by Sina Berry ([id number]) on 08/06/2022 6:22:20 AM Referred By: Confirmed By:Sina Berry
[2022-08-06 06:37] LABS: BUN Creatinine Ratio 16.5 (10-20); Calcium 9.2 mg/dl (8.5-10.1); Chol HDL Ratio 3.5 (0-5); Creatinine Clr Calc Pharmacy 65.3 ml/min; Est GFR (African American) 90.7 ml/min; Est GFR (Non-African American) 78.2 ml/min; Magnesium 1.9 mg/dl (1.7-2.4); Potassium 3.7 mmol/L (3.5-5.1)
[2022-08-06 07:46] LABS: Estimated Average Glucose 117 mg/dl; Hemoglobin A1C 5.7 % (4.5-5.6)
[2022-08-06] MEDS: HEPARIN SOD 5,000 UNIT/0.5 ML VIAL SQ SCH ×2 (08:07→20:37)
--- NOTE | 2022-08-06 08:20 | Hospitalist Progress Note ---
Date of Service August 06, 2022 Assessment & Plan (1) Atypical chest pain: Plan: Central chest pain with exertion yesterday. Has prior history of tobacco use and has not smoked in 20 years. Has h/o HTN as risk factors for CAD. With no symptoms and negative troponin trend overnight. No acute changes on EKG. Echo pending. Cardiology consulted. (2) Hypertension: Plan: At goal, cont home medications. (3) Hyperlipidemia: Plan: chronic,stable. Cont Lipitor per home regimen. (4) Emphysema lung: Plan: - Quit smoking in 1999? Pt notes smoked for 30+ years - Does not wear supplemental O2 at baseline, currently oxygenating on room air. (5) Fatty liver: Plan: -Follows with GI as an outpatient, was in their office earlier today for routine appointment: -had complaints of abd discomfort x few days, pt reports distension, normal bowel movements, no nausea/vomiting. Denies abdominal complaints currently -Had a right inguinal hernia repair with mesh in 2017, right lower quadrant ultrasound did not show any recurrence of hernia or mass -planning on outpatient RUQ US for liver evaluation, KUB, trial dicyclomine 10 mg daily as needed for abdominal pain/cramping, consider CT abdomen pelvis if KUB was unrevealing and Dicyclomine not helpful (6) GERD (gastroesophageal reflux disease): Plan: - Cont omeprazole (7) DVT (deep venous thrombosis): Plan: DVT ppx: scds, heparin subq FULL code Dispo: From home, lives alone, to home once cleared by cardiology. Destinee Cline DO [facility] Hospitalist Admission and Anticipated Discharge Date Admission Date: August 05, 2022 Subjective 71 yo M admitted for chest pain while at a [facility] clinic. Walking yesterday and felt chest pain come on. Described as central chest without radiation. No associated sweating, lightheadedness, nausea SOB or other symptoms along with the pain. Nitro and 4 asa last night took the pain to zero in the field. By the time he came to the ER he was chest pain free. Never felt this pain before. 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 Not a current smoker but has a history of this and reports emphysema. 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 He is a poor historian and lives alone. Questioned if he has memory issues and he says no. He is oriented. Doesn't know his medications very well. Remained chest pain free overnight with a negative troponin trend on labwork. Review of Systems Review of Systems: All systems were reviewed and negative except as indicated on subjective above. Physical Exam Physical Exam: CONSTITUTIONAL: WNWD, vitals as above, generally well- appearing, NAD EYES: normal conjunctivae, no scleral icterus ENT: external ear and nose normal, MMM NECK: trachea midline RESPIRATORY: clear to auscultation bilaterally, no crackles, rales or wheezes, normal respiratory effort CARDIOVASCULAR: regular rate and rhythm, S1 and 2 heard without murmurs, chacon ps or rubs, no JVD, no peripheral edema CHEST: inspection of chest was normal GASTROINTESTINAL: soft, nontender, ND, no guarding MUSCULOSKELETAL: strength 5/5 throughout, head is normocephalic and atraumatic SKIN: warm and dry NEUROLOGIC: CN 2-12 grossly intact, no sensory deficit, normal cognition, normal speech, no tremor PSYCHIATRIC: alert cooperative and oriented to person, place and time. Euthymic mood, makes good eye contact, language grossly intact, recent and remote memory grossly intact. Results & Data Results & Data ([facility]) Vital Signs (Past 12 Hours) Vital Signs Temp Pulse Pulse Resp BP Pulse Ox O2 Del Method 08/06/22 07:39 36.6 C 71 18 117/72 94 Room Air 08/06/22 03:29 36.5 C 75 18 128/72 97 Room Air 08/05/22 23:51 36.6 C 69 18 108/67 98 Room Air 08/05/22 23:57 63 Laboratory Results Short CBC 08/05/22 08/06/22 Range/Units 14:40 05:42 WBC 8.04 7.27 (4.8-10.8) K/ul Hgb 15.8 15.1 (14.0-18.0) g/dl Hct 44.5 43.0 (40.1-51.0) % Plt Count 166 170 (130-400) K/uL BMP 08/05/22 08/06/22 14:40 05:42 Sodium 139 138 Potassium 3.8 3.7 Chloride 104 108 H Carbon Dioxide 27 24 BUN 13 16 Creatinine 0.97 0.97 Glucose 90 108 H Calcium 9.3 9.2 Liver Function 08/05/22 Range/Units 14:40 Total Bilirubin 0.8 (0.2-1.0) mg/dl AST 21 (13-39) U/L ALT 27 (7-52) U/L Alkaline Phosphatase 93 (34-104) U/L Albumin 4.2 (3.4-5.0) gm/dl Medications Administered Current Inpatient Medications Acetaminophen (Acetaminophen 325 Mg Tab) 650 mg PO Q4H PRN PRN Reason: Moderate Pain Stop: 09/04/22 18:18 Heparin Sodium (Porcine) (Heparin Sod 5,000 Unit/0.5 Ml Vial) 5,000 units SQ Q12 AMANOD Stop: 09/04/22 20:59 Last Admin: 08/06/22 08:07 Dose: 5,000 units Ondansetron HCl (Ondansetron Inj 2 Mg/Ml 2 Ml Vial) 4 mg IV Q4H PRN PRN Reason: Nausea And Vomiting Stop: 09/04/22 18:18
[2022-08-06] MEDS ORDERED: NON-FORMULARY MEDICATION (Albuterol Sulfate 5 mg/mL Solution For Nebulization) INH PRN (09:29)
[2022-08-06] MEDS ORDERED: DICYCLOMINE HCL 10 MG CAP PO PRN ×2 (09:29→09:55)
[2022-08-06] MEDS ORDERED: NITROGLYCERIN SL 0.4 MG/TAB TAB SL PRN (09:29)
[2022-08-06] MEDS ORDERED: ALBUTEROL 0.083% NEBU SOLN 3 ML VIAL INH PRN (10:06)
--- NOTE | 2022-08-06 11:14 | Cardiology Consultation ---
Date of Consultation August 06, 2022 Assessment & Plan (1) Atypical chest pain: (2) COPD (chronic obstructive pulmonary disease): (3) Fatty liver: Plan The patient's chest pain is atypical and after having hours of discomfort his cardiac markers are negative. No EKG changes. The patient has no lateralizing signs or other symptoms such as aphasia or dysarthria with his dizziness. Blood pressure looks adequate on the medical record. I think the best option is to let the patient start a diet and to do orthostatic blood pressure checks. Stress testing would not be recommended while the patient is having symptoms of dizziness which may result in a fall or early termination of the study. I think a stress test would have low yield anyway. For now I would leave the patient on telemetry. History of Present Illness Attending Physician: Destinee Cline, DO History of Present Illness This is a 71-year-old male patient with no prior history of heart disease. He does have a history of heavy alcohol use and smoking 20 years ago. He has been followed by the GI service for fatty liver disease and according to records has COPD. He was in his usual state of health and then yesterday he was at the GI clinic after which he was ambulating and noticed some chest discomfort with associated dizziness. According to records he has had atypical chest pain in the past. He is also had some dizziness however, the patient states the symptoms seem to be different. He went to the [facility] on urgent care where they gave him 4 aspirins which relieved his discomfort. He was referred to the hospital where he has been admitted. After admission his EKG showed no acute changes. Cardiac markers despite having hours of chest discomfort were ne gative. On the telemetry he has unifocal PVCs and no other significant arrhythmias. During my interview this morning he denies chest pain and he has not had any chest pain since hospital admission however he states he is dizzy which seems to be worse when he stands up. Allergies Allergy/AdvReac Type Severity Reaction Status Date / Time No Known Allergies Allergy Verified 08/05/22 17:07 Home Medications Medication Instructions Recorded Confirmed Type amlodipine 5 mg tablet 5 mg PO QAM 02/02/19 08/05/22 History atorvastatin 20 mg tablet 20 mg PO DAILY 02/02/19 08/05/22 History metoprolol succinate 25 mg 12.5 mg PO QAM 02/02/19 08/05/22 History tablet,extended release 24 hr (Toprol XL) tamsulosin 0.4 mg capsule 0.4 mg PO QAM 02/02/19 08/05/22 History albuterol sulfate 90 mcg/actuation 2 puff inhalation Q4H PRN Wheezing 05/04/21 08/05/22 History aerosol inhaler (ProAir HFA) fluticasone furoate 100 1 inh inhalation QAM 05/04/21 08/05/22 History mcg-vilanterol 25 mcg/dose inhalation powder (Breo Ellipta) fluticasone propionate 50 2 spray intranasal DAILY 05/04/21 08/05/22 History mcg/actuation nasal spray,suspension omeprazole 20 mg capsule,delayed 20 mg PO DAILYBB 05/04/21 08/05/22 History release albuterol sulfate 5 mg/mL(0.5 %) 2.5 mg inhalation DIRECTED PRN 08/05/22 08/05/22 History solution for nebulization Shortness Of Breath aspirin 81 mg chewable tablet 81 mg PO DAILY 08/05/22 08/05/22 History dicyclomine 10 mg capsule 10 mg PO DIRECTED PRN ABD PAIN 08/05/22 08/05/22 History famotidine 40 mg tablet 40 mg PO DAILY 08/05/22 08/05/22 History nitroglycerin 0.4 mg sublingual 0.4 mg sublingual DIRECTED PRN 08/05/22 08/05/22 History tablet (Nitrostat) Chest Pain Patient History Medical History Alkaline phosphatase elevation BPH (benign prostatic hyperplasia) Emphysema lung Fatty liver GERD (gastroesophageal reflux disease) Hyperlipidemia Hypertension Osteoarthritis Scoliosis Surgical History Cyst ON CHEST REMOVED (BENIGN) History of cataract surgery History of colonoscopy History of herniorrhaphy History of tooth extraction Family History Father Coronary heart disease Mother Diabetes Other Heart disease Hypertension Social History Smoking Status: Former smoker Second Hand Exposure: No; Hx Alcohol Use: No Hx Substance Use: No Preferred Language: Azeri Communication Ability: Effective Upsetter Required: No Beliefs That Will Affect Care: None Current Living Situation: Alone current occupational status: retired Other Information That Helps Us Care for You: No Feels Safe at Home: Yes Safety Concerns: Feels Safe At This Time Assistive Devices: Denture - Upper and Denture - Lower Review of Systems Review of Systems: Review of Systems: See HPI for pertinent positives. All other 10 point review of systems are negative. Physical Exam Physical Exam: General: no acute distress and stated age Head: normocephalic, no masses, lesions, tenderness or abnormalities Eyes: conjunctiva are pink and non-injected, sclera clear Neck: supple, no adenopathy, no bruits, normal jugular venous pulse, no hepatoju gular reflux Chest: normal shape and normal respiratory effort Lungs: clear to auscultation and percussion Cardiac Exam: - regular rate & rhythm, no murmurs gallops or rubs - normal S1, normal S2 Pulses: 2(+) throughout Abdomen: abdomen soft, non-tender, no abnormal masses and no hepatosplenomegaly Musculoskeletal: no gait disturbance, no joint inflammation, no deforming arthritis Extremities: no edema and no cyanosis Neuro: grossly normal exam Results & Data ([facility]) Vital Signs (Past 12 Hours) Vital Signs Temp Pulse Pulse Resp BP Pulse Ox O2 Del Method 08/06/22 07:39 36.6 C 71 18 117/72 94 Room Air 08/06/22 03:29 36.5 C 75 18 128/72 97 Room Air 08/05/22 23:51 36.6 C 69 18 108/67 98 Room Air 08/05/22 23:57 63 Laboratory Results Laboratory Results - last 24 hr 08/05/22 08/05/22 08/05/22 14:40 14:40 14:40 WBC 8.04 RBC 5.27 Hgb 15.8 Hct 44.5 MCV 84.4 MCH 30.0 MCHC 35.5 RDW Std Deviation 38.9 RDW Coeff of Vanesa 12.8 Plt Count 166 MPV 10.5 Immature Gran % (Auto) 1.2 Neut % (Auto) 73.2 Lymph % (Auto) 15.2 [place] % (Auto) 9.1 Eos % (Auto) 0.6 Baso % (Auto) 0.7 Neut # (Auto) 5.88 Lymph # (Auto) 1.22 [place] # (Auto) 0.73 Eos # (Auto) 0.05 Baso # (Auto) 0.06 Immature Gran # (Auto) 0.10 H PT 11.0 INR 1.0 APTT 25.6 PTT Ratio 0.9 Sodium 139 Potassium 3.8 Chloride 104 Carbon Dioxide 27 Anion Gap 8 BUN 13 Creatinine 0.97 Est Cr Clr Drug Dosing 79.4 Est GFR ( Amer) 90.7 Est GFR (Non-Af Amer) 78.2 BUN/Creatinine Ratio 13.4 Glucose 90 Estimat Average Glucose Hemoglobin A1c Calcium 9.3 Magnesium Total Bilirubin 0.8 AST 21 ALT 27 Alkaline Phosphatase 93 Troponin I High Sens 4.1 Total Protein 7.0 Albumin 4.2 Globulin 2.8 Albumin/Globulin Ratio 1.5 Triglycerides Cholesterol LDL Cholesterol, Calc VLDL Cholesterol, Calc HDL Cholesterol Cholesterol/HDL Ratio SARS-CoV-2, RNA, NAAT 08/05/22 08/05/22 08/06/22 15:38 18:40 00:32 WBC RBC Hgb Hct MCV MCH MCHC RDW Std Deviation RDW Coeff of Vanesa Plt Count MPV Immature Gran % (Auto) Neut % (Auto) Lymph % (Auto) [place] % (Auto) Eos % (Auto) Baso % (Auto) Neut # (Auto) Lymph # (Auto) [place] # (Auto) Eos # (Auto) Baso # (Auto) Immature Gran # (Auto) PT INR APTT PTT Ratio Sodium Potassium Chloride Carbon Dioxide Anion Gap BUN Creatinine Est Cr Clr Drug Dosing Est GFR ( Amer) Est GFR (Non-Af Amer) BUN/Creatinine Ratio Glucose Estimat Average Glucose Hemoglobin A1c Calcium Magnesium Total Bilirubin AST ALT Alkaline Phosphatase Troponin I High Sens 4.5 4.8 Total Protein Albumin Globulin Albumin/Globulin Ratio Triglycerides Cholesterol LDL Cholesterol, Calc VLDL Cholesterol, Calc HDL Cholesterol Cholesterol/HDL Ratio SARS-CoV-2, RNA, NAAT NEGATIVE 08/06/22 08/06/22 08/06/22 05:42 05:42 05:42 WBC 7.27 RBC 5.04 Hgb 15.1 Hct 43.0 MCV 85.3 MCH 30.0 MCHC 35.1 RDW Std Deviation 39.0 RDW Coeff of Vanesa 12.8 Plt Count 170 MPV 10.8 Immature Gran % (Auto) Neut % (Auto) Lymph % (Auto) [place] % (Auto) Eos % (Auto) Baso % (Auto) Neut # (Auto) Lymph # (Auto) [place] # (Auto) Eos # (Auto) Baso # (Auto) Immature Gran # (Auto) PT INR APTT PTT Ratio Sodium 138 Potassium 3.7 Chloride 108 H Carbon Dioxide 24 Anion Gap 6 BUN 16 Creatinine 0.97 Est Cr Clr Drug Dosing 65.3 Est GFR ( Amer) 90.7 Est GFR (Non-Af Amer) 78.2 BUN/Creatinine Ratio 16.5 Glucose 108 H Estimat Average Glucose 117 Hemoglobin A1c 5.7 H Calcium 9.2 Magnesium 1.9 Total Bilirubin AST ALT Alkaline Phosphatase Troponin I High Sens Total Protein Albumin Globulin Albumin/Globulin Ratio Triglycerides 196 H Cholesterol 133 LDL Cholesterol, Calc 56 VLDL Cholesterol, Calc 39 H HDL Cholesterol 38 Cholesterol/HDL Ratio 3.5 SARS-CoV-2, RNA, NAAT Medications Administered Current Inpatient Medications Acetaminophen (Acetaminophen 325 Mg Tab) 650 mg PO Q4H PRN PRN Reason: Moderate Pain Stop: 09/04/22 18:18 Albuterol (Albuterol 0.083% Nebu Soln 3 Ml Vial) 2.5 mg INH QID PRN PRN Reason: Shortness Of Breath Stop: 09/05/22 10:05 Amlodipine Besylate (Amlodipine Besylate 5 Mg Tab) 5 mg PO QAM [facility] Stop: 09/05/22 09:29 Aspirin (Aspirin 81 Mg Ectab) 81 mg PO DAILY [facility] Stop: 09/05/22 09:34 Atorvastatin Calcium (Atorvastatin 20 Mg Tab) 20 mg PO DAILY [facility] Stop: 09/05/22 09:29 Dicyclomine HCl (Dicyclomine Hcl 10 Mg Cap) 10 mg PO Q6H PRN PRN Reason: ABD PAIN Stop: 09/05/22 09:28 Famotidine (Famotidine 40 Mg Tablet) 40 mg PO DAILY [facility] Stop: 09/05/22 09:29 Fluticasone Propionate (Fluticasone Propionate Na Spr 16 Gm Btl) 2 sprays SID DAILY [facility] Stop: 09/05/22 09:29 Fluticasone/Vilanterol (Fluticasone/Vilanterol 100/25mcg 14 Puffs/Inhaler) 1 puffs INH QAM [facility] Stop: 09/05/22 09:29 Heparin Sodium (Porcine) (Heparin Sod 5,000 Unit/0.5 Ml Vial) 5,000 units SQ Q12 [facility] Stop: 09/04/22 20:59 Last Admin: 08/06/22 08:07 Dose: 5,000 units Metoprolol Succinate (Metoprolol Succ 25mg Ext Rel Tab) 12.5 mg PO QAM [facility] Stop: 09/05/22 09:29 Nitroglycerin (Nitroglycerin Sl 0.4 Mg/Tab Tab) 0.4 mg SL Q5M PRN PRN Reason: Chest Pain Stop: 09/05/22 09:28 Ondansetron HCl (Ondansetron Inj 2 Mg/Ml 2 Ml Vial) 4 mg IV Q4H PRN PRN Reason: Nausea And Vomiting Stop: 09/04/22 18:18 Pantoprazole Sodium (Pantoprazole 40 Mg Tab) 40 mg PO DAILYBB [facility] Stop: 09/05/22 09:34 Tamsulosin HCl (Tamsulosin Hcl 0.4 Mg Cap) [facility] Stop: 09/05/22 09:29
[2022-08-06] MEDS: TAMSULOSIN HCL 0.4 MG CAP PO SCH (11:18)
[2022-08-06] MEDS: PANTOprazole 40 MG TAB PO SCH (11:18)
[2022-08-06] MEDS: FAMOTIDINE 40 MG TABLET PO SCH (11:18)
[2022-08-06] MEDS: amLODIPine BESYLATE 5 MG TAB PO SCH (11:18)
[2022-08-06] MEDS: ATORVASTATIN 20 MG TAB PO SCH (11:18)
[2022-08-06] MEDS: FLUTICASONE/VILANTEROL 100/25MCG 14 PUFFS/INHALER INH SCH (11:18)
[2022-08-06] MEDS: METOPROLOL SUCC 25MG EXT REL TAB PO SCH (11:18)
[2022-08-06] MEDS: ASPIRIN 81 MG ECTAB PO SCH (11:18)
[2022-08-06] MEDS: FLUTICASONE PROPIONATE NA SPR 16 GM BTL NAE SCH (11:19)
--- NOTE | 2022-08-06 15:24 | Electrocardiogram Report ---
Test Reason : Blood Pressure : / mmHG Vent. Rate : 075 BPM Atrial Rate : 075 BPM P-R Int : 186 ms QRS Dur : 082 ms QT Int : 378 ms P-R-T Axes : 072 074 075 degrees QTc Int : 422 ms Normal sinus rhythm Normal ECG When compared with ECG of 05-AUG-2022 14:38, No significant change was found Confirmed by Houston Day ([id number]) on 08/06/2022 3:24:11 PM Referred By: REFERRED SELF Confirmed By:Houston Day
[2022-08-07] MEDS: PANTOprazole 40 MG TAB PO SCH (06:03)
[2022-08-07] MEDS: FAMOTIDINE 40 MG TABLET PO SCH (07:47)
[2022-08-07] MEDS: amLODIPine BESYLATE 5 MG TAB PO SCH (07:48)
[2022-08-07] MEDS: ATORVASTATIN 20 MG TAB PO SCH (07:48)
[2022-08-07] MEDS: ASPIRIN 81 MG ECTAB PO SCH (07:48)
[2022-08-07] MEDS: HEPARIN SOD 5,000 UNIT/0.5 ML VIAL SQ SCH (07:48)
[2022-08-07] MEDS: METOPROLOL SUCC 25MG EXT REL TAB PO SCH (07:48)
[2022-08-07] MEDS: TAMSULOSIN HCL 0.4 MG CAP PO SCH (07:48)
[2022-08-07] MEDS: FLUTICASONE PROPIONATE NA SPR 16 GM BTL NAE SCH (07:49)
[2022-08-07] MEDS: FLUTICASONE/VILANTEROL 100/25MCG 14 PUFFS/INHALER INH SCH (07:49)
--- NOTE | 2022-08-07 10:07 | Cardiology Progress Note ---
Date of Service August 07, 2022 Assessment & Plan (1) Atypical chest pain: Plan: -proceed with stress echo today. (2) Fatty liver: Plan: -LFTs within normal limits. LDL 56. Continue atorvastatin 20 mg daily. Admission and Anticipated Discharge Date Admission Date: August 06, 2022 Subjective Patient seen in cardiology follow up. Feels well. Denies chest pain. I walked with him in the hallway and he had no chest pain or dizziness. Telemetry reveals SR with occasional PVCs and PACs. Review of Systems Review of Systems: All systems reviewed & are unremarkable except as noted in HPI & below Physical Exam Physical Exam: Intake and Output 08/06/22 08/07/22 08/07/22 22:59 06:59 14:59 Intake Total 240 / 580 120 / 580 Balance 240 / 580 120 / 580 Intake: Oral 240 / 580 120 / 580 Other: # Unmeasured Voi ds 2 1 Weight 72.4 kg Weight Measureme nt Method Built in [facility] Constitutional: WD/WN, vitals as above Respiratory: normal respiratory effort, lungs clear to auscultation Cardiovascular: RRR, no murmur, no edema Gastrointestinal (Abdomen): normal bowel sounds, soft, nontender, no hepatosplenomegaly Neurologic: PERRL, EOMI, accommodation nl, no face palsy, no dysarthria Results & Data ([facility]) Vital Signs (Past 12 Hours) Vital Signs Temp Pulse Pulse Resp BP Pulse Ox O2 Del Method 08/07/22 03:57 36.6 C 78 18 118/63 95 Room Air 08/06/22 22:30 62 08/07/22 00:31 36.5 C 18 97 Room Air
--- NOTE | 2022-08-07 10:14 | Hospitalist Progress Note ---
Date of Service August 07, 2022 Assessment & Plan (1) Atypical chest pain: Plan: Central chest pain with exertion prior to arrival. Has prior history of tobacco use and has not smoked in 20 years. Has h/o HTN as risk factors for CAD. With no symptoms and negative troponin trend overnight we will stress him for risk stratification for CAD. Telemetry reviewed and uneventful overnight. Cardiology following and plans for stress echo today. (2) Hypertension: Plan: At goal, cont home medications. (3) Hyperlipidemia: Plan: chronic,stable. Cont Lipitor per home regimen. (4) Emphysema lung: Plan: - Quit smoking in 1999? Pt notes smoked for 30+ years - Does not wear supplemental O2 at baseline, currently oxygenating on room air. (5) Fatty liver: Plan: -Follows with GI as an outpatient, was in their office earlier today for routine appointment: -had complaints of abd discomfort x few days, pt reports distension, normal bowel movements, no nausea/vomiting. Denies abdominal complaints currently -Had a right inguinal hernia repair with mesh in 2017, right lower quadrant ultrasound did not show any recurrence of hernia or mass -planning on outpatient RUQ US for liver evaluation, KUB, trial dicyclomine 10 mg daily as needed for abdominal pain/cramping, consider CT abdomen pelvis if KUB was unrevealing and Dicyclomine not helpful (6) GERD (gastroesophageal reflux disease): Plan: - Cont omeprazole (7) DVT (deep venous thrombosis): Plan: DVT ppx: scds, heparin subq FULL code Dispo: From home, lives alone, to home once cleared by cardiology. Destinee Cline DO [facility] Hospitalist Admission and Anticipated Discharge Date Admission Date: August 06, 2022 Subjective 71-year-old man presented with atypical chest pain resolved with nitro and aspirin prior to arrival Patient denies any chest pain shortness of breath or other issues overnight. Yesterday he felt "off" denying mina dizziness and denying any numbness This was when he walked in the hallways yesterday morning but yesterday evening and overnight he is done fine. He has no other issues this morning. Plan is for a stress test today with cardiology for risk stratification and likely DC home. Review of Systems Review of Systems: All systems were reviewed and negative except as indicated on subjective above. Physical Exam Physical Exam: CONSTITUTIONAL: WNWD, vitals as above, generally well- appearing, NAD EYES: normal conjunctivae, no scleral icterus ENT: external ear and nose normal, MMM NECK: trachea midline RESPIRATORY: clear to auscultation bilaterally, no crackles, rales or wheezes, normal respiratory effort CARDIOVASCULAR: regular rate and rhythm, S1 and 2 heard without murmurs, gallops or rubs, no JVD, no peripheral edema CHEST: inspection of chest was normal GASTROINTESTINAL: soft, nontender, ND, no guarding MUSCULOSKELETAL: strength 5/5 throughout, handgrip intact bilaterally, ambulates around the room without issue. Head is normocephalic and atraumatic SKIN: warm and dry NEUROLOGIC: CN 2-12 grossly intact, no sensory deficit, normal cognition, normal speech, no tremor PSYCHIATRIC: alert cooperative and oriented to person, place and time. Euthymic mood, makes good eye contact, language grossly intact, recent and remote memory grossly intact. Results & Data Results & Data ([facility]) Vital Signs (Past 12 Hours) Vital Signs Temp Pulse Pulse Resp BP Pulse Ox O2 Del Method 08/07/22 03:57 36.6 C 78 18 118/63 95 Room Air 08/06/22 22:30 62 08/07/22 00:31 36.5 C 18 97 Room Air Medications Administered Current Inpatient Medications Acetaminophen (Acetaminophen 325 Mg Tab) 650 mg PO Q4H PRN PRN Reason: Moderate Pain Stop: 09/04/22 18:18 Albuterol (Albuterol 0.083% Nebu Soln 3 Ml Vial) 2.5 mg INH QID PRN PRN Reason: Shortness Of Breath Stop: 09/05/22 10:05 Amlodipine Besylate (Amlodipine Besylate 5 Mg Tab) 5 mg PO QAM [facility] Stop: 09/05/22 09:29 Last Admin: 08/07/22 07:48 Dose: 5 mg Aspirin (Aspirin 81 Mg Ectab) 81 mg PO DAILY [facility] Stop: 09/05/22 09:34 Last Admin: 08/07/22 07:48 Dose: 81 mg Atorvastatin Calcium (Atorvastatin 20 Mg Tab) 20 mg PO DAILY [facility] Stop: 09/05/22 09:29 Last Admin: 08/07/22 07:48 Dose: 20 mg Dicyclomine HCl (Dicyclomine Hcl 10 Mg Cap) 10 mg PO Q6H PRN PRN Reason: ABD PAIN Stop: 09/05/22 09:28 Famotidine (Famotidine 40 Mg Tablet) 40 mg PO DAILY [facility] Stop: 09/05/22 09:29 Last Admin: 08/07/22 07:47 Dose: 40 mg Fluticasone Propionate (Fluticasone Propionate Na Spr 16 Gm Btl) 2 sprays SID DAILY [facility] Stop: 09/05/22 09:29 Last Admin: 08/07/22 07:49 Dose: 2 sprays Fluticasone/Vilanterol (Fluticasone/Vilanterol 100/25mcg 14 Puffs/Inhaler) 1 puffs INH QAM [facility] Stop: 09/05/22 09:29 Last Admin: 08/07/22 07:49 Dose: 1 puffs Heparin Sodium (Porcine) (Heparin Sod 5,000 Unit/0.5 Ml Vial) 5,000 units SQ Q12 [facility] Stop: 09/04/22 20:59 Last Admin: 08/07/22 07:48 Dose: 5,000 units Metoprolol Succinate (Metoprolol Succ 25mg Ext Rel Tab) 12.5 mg PO [facility] Stop: 09/05/22 09:29 Last Admin: 08/07/22 07:48 Dose: 12.5 mg Nitroglycerin (Nitroglycerin Sl 0.4 Mg/Tab Tab) 0.4 mg SL Q5M PRN PRN Reason: Chest Pain Stop: 09/05/22 09:28 Ondansetron HCl (Ondansetron Inj 2 Mg/Ml 2 Ml Vial) 4 mg IV Q4H PRN PRN Reason: Nausea And Vomiting Stop: 09/04/22 18:18 Pantoprazole Sodium (Pantoprazole 40 Mg Tab) 40 mg PO DAILYBB [facility] Stop: 09/05/22 09:34 Last Admin: 08/07/22 06:03 Dose: 40 mg Tamsulosin HCl (Tamsulosin Hcl 0.4 Mg Cap) 0.4 mg [facility] Stop: 09/05/22 09:29 Last Admin: 08/07/22 07:48 Dose: 0.4 mg
--- NOTE | 2022-08-07 11:29 | Communication Note ---
Date of Service: August 07, 2022 Stress echo is negative for inducible ischemia. Full report to follow. Stable for discharge from a cardiology standpoint.
--- NOTE | 2022-08-07 12:42 | Discharge Summary ---
Discharge Summary Date of Service August 07, 2022 Notes For Next Care Provider stress echo was negative during this admission uncertain cause of chest pain-consider GI, MSK or other etiology if further workup needed on followup Medication Changes From Visit No changes in medications Admission HPI Per Admitting Provider This is a 71 yo M with PMhx of emphysema with remote smoking hx (quit in 1999 ), remote hx of alcohol use (quit in 1999) HLD, HTN, panic attacks and anxiety, and fatty liver. He initially presented to outpatient GI clinic today for routine follow-up for fatty liver this morning where there were no complaints of any chest pain, shortness of breath. 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 He proceeded to go home and then 1 in his home while walking felt similar chest pain and heaviness again. Other associated symptoms included lightheadedness and dizziness. He drove himself back to urgent care for an evaluation. There he was administered 4 baby aspirin's, 1 dose of nitro which improved his symptoms. Denies any current chest pain, heaviness or pressure now, and feels "completely normal". EMS transported him to the hospital via ambulance. Patient reports never feeling pain such as this before. He is unable to recall why he had an Echo of the heart done last Spring and does not remember why he previously saw cardiology. Pt reports taking all of his routinely scheduled medications including this mornings. Daughter Pratibha Hernandez, C: [phone], H:[phone] Admission Exam Per Admitting Provider Physical Exam: General: awake, alert, no apparent distress Head: Normocephalic, atraumatic ENT: PERRL, EOMI, no pharyngeal exudate, mucous membranes moist Chest: Clear to auscultation, on room air, no adventitious breath sounds Cardiac: Regular rate and rhythm, + few PVCs, +faint murmur, no JVD, normal peripheral pulses, good capillary refill Abdominal: NABS x 4 quadrants, soft, + moderately distended, nontender to palpation, no rebound or guarding Extremities: Normal inspection, no peripheral edema or erythema, calfs nontender to palpation Psych: Normal mood and affect Neuro: AAO x 3, strength intact bilaterally and rated 5/5, no motor deficits, speech is clear, no peripheral sensory deficits Principal Dx & Hospital Course #1 = Principal Diagnosis (1) Atypical chest pain: (2) Hypertension: (3) Hyperlipidemia: (4) Emphysema lung: (5) Fatty liver: (6) GERD (gastroesophageal reflux disease): Plan 71 yo M with no prior history of heart disease who also had a history of heavy alcohol use and smoking 20 years ago presented with atypical chest pain. Aspirin relieved his chest discomfort. After admission, his EKG showed. No acute changes. Cardiac markers were trended and negative despite having hours of chest discomfort. All these features were reassuring this was not an evolving ACS. Telemetry overnight revealed unifocal PVCs and no other significant arrhythmias. Stress echo was negative for inducible ischemia. He was seen by [facility] and was cleared as stable for discharge. His symptoms had completely resolved. Close primary care follow-up was recommended. Discharge Exam CONSTITUTIONAL: WNWD, vitals as above, generally well-appearing, NAD EYES: normal conjunctivae, no scleral icterus ENT: external ear and nose normal, MMM NECK: trachea midline RESPIRATORY: clear to auscultation bilaterally, no crackles, rales or wheezes, normal respiratory effort CARDIOVASCULAR: regular rate and rhythm, S1 and 2 heard without murmurs, gallops or rubs, no JVD, no peripheral edema CHEST: inspection of chest was normal GASTROINTESTINAL: soft, nontender, ND, no guarding MUSCULOSKELETAL: strength 5/5 throughout, handgrip intact bilaterally, ambulates around the room without issue. Head is normocephalic and atraumatic SKIN: warm and dry NEUROLOGIC: CN 2-12 grossly intact, no sensory deficit, normal cognition, normal speech, no tremor PSYCHIATRIC: alert cooperative and oriented to person, place and time. Euthymic mood, makes good eye contact, language grossly intact, recent and remote memory grossly intact. Updated Medication List Medication Instructions Recorded Confirmed Type amlodipine 5 mg tablet 5 mg PO QAM 02/02/19 08/05/22 History atorvastatin 20 mg tablet 20 mg PO DAILY 02/02/19 08/05/22 History metoprolol succinate 25 mg 12.5 mg PO QAM 02/02/19 08/05/22 History tablet,extended release 24 hr (Toprol XL) tamsulosin 0.4 mg capsule 0.4 mg PO QAM 02/02/19 08/05/22 History albuterol sulfate 90 mcg/actuation 2 puff inhalation Q4H PRN Wheezing 05/04/21 08/05/22 History aerosol inhaler (ProAir HFA) fluticasone furoate 100 1 inh inhalation QAM 05/04/21 08/05/22 History mcg-vilanterol 25 mcg/dose inhalation powder (Breo Ellipta) fluticasone propionate 50 2 spray intranasal DAILY 05/04/21 08/05/22 History mcg/actuation nasal spray,suspension omeprazole 20 mg capsule,delayed 20 mg PO DAILYBB 05/04/21 08/05/22 History release albuterol sulfate 5 mg/mL(0.5 %) 2.5 mg inhalation DIRECTED PRN 08/05/22 08/05/22 History solution for nebulization Shortness Of Breath aspirin 81 mg chewable tablet 81 mg PO DAILY 08/05/22 08/05/22 History dicyclomine 10 mg capsule 10 mg PO DIRECTED PRN ABD PAIN 08/05/22 08/05/22 History famotidine 40 mg tablet 40 mg PO DAILY 08/05/22 08/05/22 History nitroglycerin 0.4 mg sublingual 0.4 mg sublingual DIRECTED PRN 08/05/22 08/05/22 History tablet (Nitrostat) Chest Pain Hospital Stay Data Consultations 08/05/22 16:52 ED Decision to Admit Stat 08/05/22 17:54 Consult Cardiology Routine Pending Results Patient Have Any Pending Studies at Discharge: No Discharge Instructions Given to Patient (Per Discharging Provider) Mr. Jones, your stress echo cardiogram was negative for inducible ischemia which means you have a low risk of cardiac disease moving forward. It is recommended that you follow-up with your primary care doctor within 1 week of discharge to ensure you are still doing well since returning home. There are no changes to current medications at discharge today. Please continue everything as previously taken at home. It was a pleasure taking care of you! Please call if you have any questions or problems. You can reach a [facility] hospitalist on duty at [facility] 24 hours a day by calling [phone]. Take care of yourself. Destinee Cline, [facility] Total Time Total Time Spent Total Time Spent (In Minutes): 60
--- NOTE | 2022-08-14 15:47 | Coding Query ---
CHEST PAIN To promote full compliance with coding requirements relating to patient care physician participation is requested in all cases of orthopedic coder uncertainty. Please assist us with the question(s) below: Please list a more specific chest pain diagnosis or cause of chest pain if known by placing an X within the parenthesis (x): (x ) Atypical Chest Pain ( ) Chest Wall Pain ( ) Midsternal Chest Pain ( ) Musculoskeletal Chest Pain ( ) Pleuritic Chest Pain ( ) Substernal Chest Pain ( ) Costochondral Chest Pain ( ) Other (please Specify) ( ) Unable to Determine Thank you Meir Zimmer [facility]
== END 2022-08-07 13:30 | disposition home or self-care (01) | DRG 313 ==
LOC: ED 14:30 → 4W 14:30 → SUATTDRO 17:33 → 4W 18:04
DX: Z79.82 Long term (current) use of aspirin; J43.9 Emphysema, unspecified; R07.89 Other chest pain; K76.0 Fatty (change of) liver, not elsewhere classified; I10 Essential (primary) hypertension; K21.9 Gastro-esophageal reflux disease without esophagitis; N40.0 Benign prostatic hyperplasia without lower urinary tract symptoms; E78.5 Hyperlipidemia, unspecified; Z87.891 Personal history of nicotine dependence